=== PATIENT | male | born 1975 | race Caucasian/White ===

== ENCOUNTER → 2019-01-09 | Outpatient (CLI) | payer BC ==
[2019-01-09 11:44] LABS: FOLATE 10.1 NG/ML; TOTAL 25(OH) VITAMIN D 35.7 NG/ML (30.0-100.0)
[2019-01-13 10:07] LABS: ANCA-ATYPICAL <1:20 titer (Neg:<1:20); ANGIOTENSIN 1 CONVERTING ENZYM 27 U/L (14-82); ANTI DS-DNA AB <1:10 titer (.); ANTI-HISTONE ANTIBODIES 0.9 Units (0.0-0.9); CYTOPLASMIC NEUTROP AB ANCA-C <1:20 titer (Neg:<1:20); Lyme Disease IgG/IgM Antibodie <0.91 ISR (0.00-0.90); Lyme Disease IgM Ab Quantitati <0.80 index (0.00-0.79); PERINUCLEAR AB ANCA-P <1:20 titer (Neg:<1:20); RNP ANTIBODY < 0.2 AI (0.0-0.9); SMITHS ANTIBODY < 0.2 AI (0.0-0.9); SSA SJOGRENS A <0.2 AI (0.0-0.9); SSB SJOGRENS B <0.2 AI (0.0-0.9); VITAMIN B1 LEVEL WHOLE BLOOD 142.5 nmol/L (66.5-200.0); VITAMIN B6,PYRIDOXAL PHOSPHATE 7.2 ug/L (5.3-46.7); VITAMIN E(ALPHA TOCOPHEROL) 11.8 mg/L (7.0-25.1); VITAMIN E(GAMMA TOCOPHEROL) 1.2 mg/L (0.5-5.5)
== END ==
LOC: M LAB 09:57
PROVIDERS: ATTEND Psychiatry & Neurology Neurology
DX: L95.9 Vasculitis limited to the skin, unspecified (principal); R20.0 Anesthesia of skin; E55.9 Vitamin D deficiency, unspecified; Z11.9 Encounter for screening for infectious and parasitic diseases, unspecified